=== PATIENT | male | born 1990 | race Caucasian/White ===

== ENCOUNTER 2022-11-11 08:05 | Emergency (ER) | payer SELFPAY ==
[2022-11-11 08:26] VITALS: BP 163/105; PULSE 67; RESP 16; TEMP 36.4; O2SAT 98; BMI 30.2
--- NOTE | 2022-11-11 08:56 | W.ED.URI ---
HPI - URI/Sore Throat General: Chief Complaint: Airway/Esophagus Foreign Body Stated Complaint: sore throat Time Seen by Provider: 11/11/22 08:06 Source: patient Mode of arrival: ambulatory History of Present Illness: 32-year-old male presents emergency room complaining of sore throat. He believes he has a tonsil caught in his throat when he coughs think he brings it back up and then goes part way down his throat. He has been able to swallow. At times he states he thinks he is swallowing on his tonsils and coughs it back up again. Said low-grade fever no vomiting no diarrhea. MD elicited complaint: cough and sore throat Onset (ago): day(s) Consistency: intermittent Severity: mild Exacerbating factors: swallowing and other (Coughing) Relieving factors: nothing Associated symptoms: Reports fever(s) (Subjective); Deny abdominal pain, change in voice, chills, chest pain, congestion, cough, diarrhea, epistaxis, ear or mastoid pain, headache(s), myalgias, nasal congestion, nausea, rash, rhinorrhea, short of breath, sinus pain, stiffness or sore throat Treatments prior to arrival: none Review of Systems Const: Reports: fever(s) (Subjective); Denies: chills ENMT: Reports: throat pain, odynophagia and hoarseness; Denies: ear or mastoid pain, nasal congestion, epistaxis or sinus pain Card: Denies: chest pain, palpitations or irregular heart rhythm Resp: Denies: dyspnea, productive cough or non-productive cough GI: Denies: abdominal pain, nausea or diarrhea : Denies: flank pain, dysuria, urinary frequency or urinary urgency Musc: Denies: neck pain Skin/Breast: Denies: rash or pruritus Neuro: Denies: headache(s) PFSH ED PFSH: Medical History (Updated 11/11/22 @ 09:04 by Manolo Tuttle DO) No significant past medical history Surgical History (Updated 11/11/22 @ 09:04 by Manolo Tuttle DO) No pertinent past surgical history Physical Exam Const: GENERAL APPEARANCE: cooperative and comfortable ORIENTATION/CONSCIOUSNESS: Yes awake, Yes oriented to person, Yes oriented to place and Yes oriented to time HENMT: COMMON NORMALS: normocephalic, atraumatic and hearing grossly normal bilaterally HEAD & SCALP: normocephalic and atraumatic THROAT: posterior oropharynx abnormal edema, erythema and exudates (Scant) OTHER: Idris aphthous ulcer on the right soft palate. Resp: COMMON NORMALS: normal respiratory effort, No retractions, No use of accessory muscles and clear to auscultation bilaterally AUSCULTATION: clear to auscultation bilaterally Cardio: COMMON NORMALS: regular rate, regular rhythm and No murmurs present (Cardio) RATE: regular rate RHYTHM: regular rhythm GI: COMMON NORMALS: Soft to palpation and No hepatosplenomegaly present AUSCULTATION: Yes normoactive bowel sounds PALPATION: Yes Soft to palpation, No Tenderness to palpation present (GI), No Guarding due to palpation present (GI) and Yes No hepatosplenomegaly present Extremity: COMMON NORMALS: normal to inspection, capillary refill normal, no clubbing, cyanosis or edema, no calf tenderness and no pedal edema Neuro: SENSORIUM/ORIENTATION: Yes oriented to person, Yes oriented to place and Yes oriented to time Skin: COMMON NORMALS: no rashes or lesions noted GENERAL SKIN EXAM: no rashes or lesions noted Course Vital Signs: Vital signs: Vital Signs Temperature 97.6 F 11/11/22 08:26 Pulse Rate 67 11/11/22 08:26 Respiratory Rate 16 11/11/22 08:26 Blood Pressure 163/105 11/11/22 08:26 Pulse Oximetry 98 11/11/22 08:26 MDM - URI/Sore Throat Medical Decision Making Pharyngitis suspect strep based on exam and presentation. We will start Amoxil 875 twice daily follow-up primary care if not improving Medical Records I reviewed the patient's medical records. Lab Data I reviewed the patient's lab results. Discharge Plan Discharge Patient Disposition: Home Clinical Impression: Pharyngitis Condition: Stable Prescriptions: New amoxicillin 875 mg tablet 875 mg PO BID Qty: 20 0RF Discharge Orders: Discharge ED (Routine); Ordered 11/11/22 Ordered By: Manolo Tuttle Discharge Diet: Soft Mechanical Discharge Activity: Increase activity as tolerated Patient Instructions: Pharyngitis (ED), Opioid Safety, Pain Management Activity Restrictions/Additional Instructions: You are seen today for pharyngitis and started on amoxicillin take 1 pill twice a day for 10 days until he entire prescription is gone. You can use warm salt water gargles or [id number] throat lozenges or anesthetics as needed Tylenol or Profen for fever. If not improving follow-up with your primary care doctor. 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
[2022-11-11 09:07] VITALS: PULSE 95; RESP 16; O2SAT 96
== END 2022-11-11 09:00 | disposition home or self-care (01) ==
PROVIDERS: Emergency Provider Family Medicine
DX: J02.9 Acute pharyngitis, unspecified (principal)
CPT/HCPCS: 99283